=== PATIENT | male | born 1965 | race African-American/Black ===

== ENCOUNTER 2017-09-25 16:41 | Inpatient (IN) ==
[2017-09-25] MEDS ORDERED: ONDANSETRON 4 MG/2 ML VIAL IV STA (17:05)
[2017-09-25] MEDS ORDERED: ASPIRIN 325 MG TABLET PO STA (17:05)
[2017-09-25] MEDS ORDERED: MORPHINE 2 MG/1 ML SYRINGE IV STA (17:05)
[2017-09-25] MEDS ORDERED: NITROGLYCERIN SL 0.4 MG TABLET SL STA (17:06)
[2017-09-25] MEDS ORDERED: ONDANSETRON 4 MG/2 ML VIAL ONE (17:06)
[2017-09-25] MEDS ORDERED: MORPHINE 4 MG/1 ML VIAL ONE ×2 (17:07→17:30)
[2017-09-25] MEDS ORDERED: ASPIRIN 325 MG TABLET ONE (17:07)
[2017-09-25] MEDS ORDERED: NITROGLYCERIN SL 0.4 MG TABLET SL ONE (17:07)
[2017-09-25] MEDS ORDERED: ENOXAPARIN 100 MG/ML SYRINGE SUBCUT ONE (17:21)
[2017-09-25] MEDS ORDERED: NITROGLYCERIN DRIP 50 MG/250 ML BOTTLE IV ONE (17:21)
[2017-09-25] MEDS ORDERED: MORPHINE 4 MG/1 ML VIAL IV STA (17:32)
[2017-09-25 17:37] LABS: Basophils # 0.1 10*3/uL (0.0-0.2); Basophils % 0.5 % (0.0-0.8); Eosinophils # 0.5 10*3/uL (0.0-0.87); Eosinophils % 4.5 % (0.00-10.9); Hemoglobin 16.6 GM/DL (14.0-18.0); Immature Granulocytes % 0.7 %; Immature Granulocytes Absolute 0.08 #; Lymphocytes # 4.9 10*3/uL (1.4-4.0); Lymphocytes % 44.9 % (21.2-54.2); Mean Corpuscular HGB Conc 33.9 GM/DL (32-36); Mean Corpuscular Hemoglobin 30 PG (27-34); Mean Corpuscular Volume 88.4 FL (87-102); Monocytes # 0.7 10*3/uL (0.11-0.8); Monocytes % 6.4 % (1.7-12.7); Neutrophils # 4.7 10*3/uL (1.4-7.4); Platelet Count 317 T/CUMM (130-400); Red Blood Count 5.54 MC/CUMM (3.8-5.5)
[2017-09-25] MEDS ORDERED: NITROGLYCERIN DRIP 50 MG/250 ML BOTTLE IV PRN (17:40)
[2017-09-25] MEDS ORDERED: LIDOCAINE 1%/EPI INJ 20 ML VIAL ONE (17:44)
[2017-09-25] MEDS ORDERED: HEPARIN/NACL 0.9% 2 UNITS/ML 1,000 ML IV ONE ×2 (17:44→18:35)
[2017-09-25] MEDS ORDERED: fentaNYL 100 MCG/2 ML VIAL ONE (17:45)
[2017-09-25] MEDS ORDERED: MIDAZOLAM 2 MG/2 ML VIAL ONE (17:45)
[2017-09-25 17:53] LABS: PT Patient Result 10.2 SECS
[2017-09-25] MEDS ORDERED: ENOXAPARIN 60 MG/0.6 ML SYRINGE ONE (17:54)
[2017-09-25] MEDS ORDERED: MORPHINE 10 MG/1 ML VIAL ONE (17:55)
[2017-09-25] MEDS ORDERED: MAGNESIUM SULF RIDER 2 GM in PREMIX 1 EACH IV PRN (18:03)
[2017-09-25] MEDS ORDERED: ZALEPLON 5 MG CAPSULE PO PRN (18:03)
[2017-09-25] MEDS ORDERED: MAGNESIUM HYDROXIDE SUSP 30 ML UDCUP PO PRN (18:03)
[2017-09-25] MEDS ORDERED: TIROFIBAN 5,000 MCG/100 ML PREMIX IV ONE (18:03)
[2017-09-25] MEDS ORDERED: ONDANSETRON 4 MG/2 ML VIAL IV PRN (18:03)
[2017-09-25] MEDS ORDERED: ACETAMINOPHEN 325 MG TABLET PO PRN (18:03)
[2017-09-25] MEDS ORDERED: POTASSIUM CHLORIDE 20 MEQ TABLET PO PRN (18:03)
[2017-09-25] MEDS ORDERED: diphenhydrAMINE CAP 25 MG CAPSULE PO PRN (18:06)
[2017-09-25] MEDS ORDERED: LORazepam 1 MG TABLET PO PRN (18:07)
[2017-09-25] MEDS ORDERED: TIROFIBAN 5,000 MCG/100 ML PREMIX IV SCH (18:08)
[2017-09-25] MEDS ORDERED: ENOXAPARIN 100 MG/ML SYRINGE SUBCUT STA (18:12)
[2017-09-25] MEDS ORDERED: TICAGRELOR 90 MG TABLET ONE (18:22)
[2017-09-25] MEDS ORDERED: METOPROLOL TARTRATE 5 MG/5 ML VIAL IV ONE (18:26)
[2017-09-25 18:40] LABS: Albumin 3.2 G/DL (3.4-5.0); Bilirubin,Total 0.6 MG/DL (0.2-1.0); CKMB % 2.1 %; Osmolality,Calculated 273.8 MOS/KG (273-304); Potassium 3.2 MMOL/L (3.5-5.1); Total Protein 6.4 G/DL (6.4-8.3); Troponin I Only 0.335 NG/ML (0.00-0.045)
[2017-09-25] MEDS ORDERED: hydrALAZINE 20 MG/1 ML VIAL IV PRN (19:38)
[2017-09-25] MEDS ORDERED: SODIUM CHLORIDE 0.45% 1,000 ML IV SCH (20:00)
[2017-09-25] MEDS ORDERED: cloNIDine 0.1 MG TABLET PO PRN (20:30)
[2017-09-25] MEDS ORDERED: TICAGRELOR 90 MG TABLET PO SCH (21:00)
[2017-09-25] MEDS: METOPROLOL TARTRATE 25 MG TABLET PO SCH (21:43)
[2017-09-25] MEDS: ROSUVASTATIN 20 MG TABLET PO SCH (21:43)
[2017-09-26 00:33] LABS: Apearance,Urine CLEAR (Clear); Bacteria,Urine Occasional /HPF (Few); Bilirubin,Urine Negative (Negative); Blood, Urine Negative (Negative); Glucose,Urine (UA) Negative (Negative); Ketones,Urine Negative (Negative); Mucus,Urine Occasional /LPF (Occasional); Nitrite,Urine Negative (Negative); Protein,Urine Negative; RBC,Urine 1 /HPF (0-4); Squamous Epithelial Cell,Urine Occasional /HPF (0-10); Urine Color Yellow (Yellow); Urine Specific Gravity > 1.060 (1.001-1.035); Urine Urobilinogen < 2.0 EU/DL (0.2-1.0); WBC,Urine <1 /HPF (0-6)
[2017-09-26 03:19] LABS: Barbiturates Screen,Urine Negative (Negative); Benzodiazepines Screen,Urine Negative (Negative); Cannabinoid Screen,Urine Negative (Negative); Opiate Screen,Urine Positive (Negative); Phencyclidine Screen,Urine Negative (Negative)
[2017-09-26 05:15] LABS: Basophils % 0.2 % (0.0-0.8); Eosinophils # 0.2 10*3/uL (0.0-0.87); Eosinophils % 2.1 % (0.00-10.9); Hematocrit 43.2 VOL% (42.0-52.0); Hemoglobin 14.8 GM/DL (14.0-18.0); Immature Granulocytes % 0.5 %; Immature Granulocytes Absolute 0.05 #; Lymphocytes # 2.1 10*3/uL (1.4-4.0); Lymphocytes % 21.7 % (21.2-54.2); Mean Corpuscular HGB Conc 34.3 GM/DL (32-36); Mean Corpuscular Hemoglobin 30 PG (27-34); Mean Corpuscular Volume 88.2 FL (87-102); Mean Platelet Volume 8.6 FL (9.6-12.0); Monocytes # 0.9 10*3/uL (0.11-0.8); Monocytes % 8.9 % (1.7-12.7); Neutrophils # 6.4 10*3/uL (1.4-7.4); Neutrophils % 66.6 % (38.7-73.9); Platelet Count 285 T/CUMM (130-400); Red Cell Distribution Width 14.4 % (9.3-17.3); White Blood Count 9.7 T/CUMM (4-12)
[2017-09-26 05:49] LABS: Risk Ratio 2.8; VLDL CHOLESTEROL 35.2 MG/DL
[2017-09-26 06:01] LABS: CKMB % 11.3 %; Calcium 8.4 MG/DL (8.5-10.1); Osmolality,Calculated 275.7 MOS/KG (273-304)
[2017-09-26 06:03] LABS: Troponin I Only 61.5 NG/ML (0.00-0.045)
[2017-09-26] MEDS ORDERED: ASPIRIN EC 325 MG TABLET PO SCH (09:00)
[2017-09-26] MEDS: ASPIRIN EC 81 MG TABLET PO SCH (09:23)
[2017-09-26] MEDS: TICAGRELOR 90 MG TABLET PO SCH ×2 (09:24→20:04)
[2017-09-26] MEDS: LOSARTAN 50 MG TABLET PO SCH (09:24)
[2017-09-26] MEDS: PANTOPRAZOLE 40 MG TABLET PO SCH (09:24)
[2017-09-26] MEDS: METOPROLOL TARTRATE 25 MG TABLET PO SCH ×2 (09:24→20:04)
[2017-09-26] MEDS: ROSUVASTATIN 20 MG TABLET PO SCH (20:04)
[2017-09-27 05:54] LABS: Basophils % 0.2 % (0.0-0.8); Eosinophils # 0.5 10*3/uL (0.0-0.87); Eosinophils % 5.5 % (0.00-10.9); Hematocrit 45.5 VOL% (42.0-52.0); Hemoglobin 15.6 GM/DL (14.0-18.0); Immature Granulocytes % 0.5 %; Immature Granulocytes Absolute 0.05 #; Lymphocytes # 2.5 10*3/uL (1.4-4.0); Lymphocytes % 27.6 % (21.2-54.2); Mean Corpuscular HGB Conc 34.3 GM/DL (32-36); Mean Corpuscular Hemoglobin 30 PG (27-34); Mean Corpuscular Volume 88.2 FL (87-102); Monocytes # 1.1 10*3/uL (0.11-0.8); Monocytes % 11.6 % (1.7-12.7); Neutrophils % 54.6 % (38.7-73.9); Platelet Count 273 T/CUMM (130-400); Red Blood Count 5.16 MC/CUMM (3.8-5.5); Red Cell Distribution Width 14.2 % (9.3-17.3); White Blood Count 9.2 T/CUMM (4-12)
[2017-09-27 06:04] LABS: Calcium 8.5 MG/DL (8.5-10.1); Osmolality,Calculated 276.4 MOS/KG (273-304); Potassium 3.8 MMOL/L (3.5-5.1)
[2017-09-27] MEDS: LOSARTAN 50 MG TABLET PO SCH (08:45)
[2017-09-27] MEDS: PANTOPRAZOLE 40 MG TABLET PO SCH (08:45)
[2017-09-27] MEDS: ASPIRIN EC 81 MG TABLET PO SCH (08:45)
[2017-09-27] MEDS: METOPROLOL TARTRATE 50 MG TABLET PO SCH ×2 (08:45→21:44)
[2017-09-27] MEDS: TICAGRELOR 90 MG TABLET PO SCH ×2 (08:45→21:44)
[2017-09-27] MEDS: ROSUVASTATIN 20 MG TABLET PO SCH (21:44)
[2017-09-28] MEDS: LOSARTAN 50 MG TABLET PO SCH (08:11)
[2017-09-28] MEDS: PANTOPRAZOLE 40 MG TABLET PO SCH (08:12)
[2017-09-28] MEDS: METOPROLOL TARTRATE 50 MG TABLET PO SCH (08:12)
[2017-09-28] MEDS: TICAGRELOR 90 MG TABLET PO SCH (08:12)
[2017-09-28] MEDS: ASPIRIN EC 81 MG TABLET PO SCH (08:12)
[2017-09-28 08:47] VITALS: BP 110/70
[2017-09-28 09:46] LABS: Basophils % 0.4 % (0.0-0.8); Eosinophils # 1.1 10*3/uL (0.0-0.87); Eosinophils % 10.7 % (0.00-10.9); Hematocrit 45.5 VOL% (42.0-52.0); Hemoglobin 15.6 GM/DL (14.0-18.0); Immature Granulocytes % 0.5 %; Immature Granulocytes Absolute 0.05 #; Lymphocytes # 2.7 10*3/uL (1.4-4.0); Lymphocytes % 27.9 % (21.2-54.2); Mean Corpuscular HGB Conc 34.3 GM/DL (32-36); Mean Corpuscular Hemoglobin 31 PG (27-34); Mean Corpuscular Volume 89.4 FL (87-102); Monocytes # 0.9 10*3/uL (0.11-0.8); Monocytes % 9.1 % (1.7-12.7); Neutrophils % 51.4 % (38.7-73.9); Platelet Count 292 T/CUMM (130-400); Red Blood Count 5.09 MC/CUMM (3.8-5.5); Red Cell Distribution Width 14.1 % (9.3-17.3); White Blood Count 9.8 T/CUMM (4-12)
[2017-09-28 10:13] LABS: Calcium 8.5 MG/DL (8.5-10.1); Osmolality,Calculated 282.1 MOS/KG (273-304)
== END 2017-09-28 10:54 | disposition home or self-care (01) | DRG 247 ==
LOC: N.ED 16:41 → N.EDINP 16:41 → N.CC 17:46 → N.TELEN 09-26 22:07
PROVIDERS: ADMIT Internal Medicine Interventional Cardiology; ATTEND Internal Medicine Interventional Cardiology
PROC: CLCCHCL (ICD-10-PCS; 2017-09-25 18:00)